=== PATIENT | female | born 1955 | race Caucasian/White ===

== ENCOUNTER 2019-05-11 15:01 | Outpatient (CLI) | payer OTHER, MEDICAID, SELFPAY ==
[2019-05-11] VITALS (8 sets, daily range): BP systolic 114–143; BP diastolic 66–85; PULSE 96–107; RESP 16; TEMP 36.7; O2SAT 98–100
--- NOTE | 2019-05-11 15:05 | DI.RAD.S_ITS ---
PROCEDURE: PAIN L/S TRANSFORAMINAL INJECT INDICATIONS: INTERVERTEBRAL DISC DISPLACEMENT FINDINGS: Fluoroscopic spot filming was performed to verify placement of spinal needles at the L5-S1 level(s), as labeled on the films. Appropriate location(s) of the needle tip(s) was confirmed by injection of iodinated contrast. Dictated by: Edilson Wallis M.D. on 05/11/2019 at 16:54 Approved by: Edilson Wallis M.D. on 05/11/2019 at 16:55
[2019-05-11] MEDS: MIDAZOLAM 5 MG/5 ML VIAL IV (16:10)
[2019-05-11] MEDS: fentaNYL 100 MCG/2 ML INJ 50 MCG IV (16:10)
[2019-05-11] MEDS: DEXAMETHASONE 10 MG/ML VIAL 20 MG INJ (16:15)
[2019-05-11] MEDS: BUPIVACAINE 0.25% (PF) VIAL 2 ML INJ (16:15)
[2019-05-11] MEDS: BETAMETHASONE 30 MG/5 ML MDV 6 MG INJ (16:15)
[2019-05-11] MEDS: IOPAMIDOL 15 ML VIAL 3 ML INJ (16:16)
--- NOTE | 2019-05-11 16:17 | PC.NURSE ---
ASSISTING PT OFF TABLE AND TRANSPORTING TO POST PROC AREA IN STABLE CONDITION.
--- NOTE | 2019-05-11 16:36 | P.PCN_ITS ---
Procedures Date/Time Date of procedure: 05/11/19 Time of procedure: 16:36 General Procedure description: PREOP DIAGNOSIS 1. FORMAINAL STENOSIS WITH LE SYMPTOMS POST OP DIAGNOSIS 1. FORMAINAL STENOSIS WITH LE SYMPTOMS PROCEDURES 1. FLUOROSCOPICALLY GUIDED CONTRAST CONTROLLED TRANSFORAMINAL EPIDURAL STEROID INJECTION - Left L5/S1 PHYSICIAN: Jose Manuel Sanchez DO INDICATIONS: Brittany is referred for treatment of Foraminal Stenosis with Left LE Symptoms FINDINGS Foraminal Nerve Root Compression secondary to disc disease and facet hypertrophy DESCRIPTION OF PROCEDURE: Following review of allergy and review of potential side effects and complications, including, but not necessarily limited to, infection, allergic reaction, local tissue breakdown, stroke, temporary or permanent nerve injury, paralysis, and possible , the patient indicated that the patient understood and agreed to proceed. An informed consent document was signed by the patient, witnessed by a nurse, and placed in the patient's chart. Additionally, other t reatment options including medications, modalities, and physical therapy were reviewed with the patient. After review of previous anaesthesic history and IV conscious sedation the patient was deemed safe to proceed with todays procedure with IV conscious sedation as ASA class II designation. Safety time-out was performed to confirm patient ID, procedure to be performed and site of procedure. IV sedation was accomplished with a combination of 2mg of Versed and 50mcg of Fentanyl was administered by the RN after DO order, titrated to patient comfort during the course of the procedure while the patient remained responsive to all verbal commands In the prone position following sterile prep and drape of the lumbar region, the Left L5/S1 posterior neuroforamen was identified fluoroscopically. The skin was anesthetized via a 25-gauge 1.5-inch needle with 1% lidocaine solution. At this point, a 25-gauge 3.5-inch spinal needle was atraumatically introduced and advanced under fluoroscopic guidance through the posterior Left L5/S1 neuroforamen to approximately the anterior aspect of the canal. Depth was confirmed on lateral view. Following negative aspiration, injection of approximately 1.5 cc of Isovue 200 under live fluoroscopy in the AP view confirmed excellent flow along the nerve root, into the epidural space without vascular or intrathecal uptake observed Radiological data, including multiple fluoroscopic views of the lumbosacral spine, reveal a spinal needle at the Left L5/S1 posterior neuroforamen. Subsequent views show flow of contrast material flowing superiorly and inferiorly along the nerve root confirming epidural flow. Subsequently, a test dose of 1.5 cc of 1% lidocaine solution was administered and patient was observed for two minutes for signs or symptoms of complications, including abdominal pain, shortness of breath, bilateral upper or lower extremity weakness, nausea and vomiting, prior to steroid injection. At this point, a total of 3cc or 20mg of dexamethasone and 6mg of betamethasone was injected without incident. The procedure tolerated the procedure well without signs or symptoms of complications prior to transfer to the recovery area continued monitoring without incident. The patient was then transferred to the recovery area where they were observed for an appropriate time after the injection. The patient reported a VAS score of 9 prior to the procedure and a post-procedure VAS of 2. Total Fluoroscopy Time: 20.9 seconds Total Conscious Sedation Time: 24min POST OP INSTRUCTIONS The patient was provided a Pain Log to continue to record their response to the target-specific procedure prior to follow-up visit with their referring physician. Additionally, specific post-injection care instructions and a contact number to our office were provided if concerns arise regarding possible complications associated with the procedure are suspected. Jose Manuel Sanchez DO Complications: none
== END 2019-05-11 16:50 | disposition home or self-care (01) ==
PROVIDERS: Visit Provider Physical Medicine & Rehabilitation
DX: M48.07 Spinal stenosis, lumbosacral region (principal); M51.17 Intervertebral disc disorders with radiculopathy, lumbosacral region
CPT/HCPCS: 64483; 99152; J0702; J1100; J2250; J3010

== ENCOUNTER → 2020-07-05 15:23 | Outpatient (CLI) | payer OTHER, MEDICAID, SELFPAY ==
--- NOTE | 2020-07-05 15:26 | DI.RAD.S_ITS ---
PROCEDURE: XR CERVICAL SPINE 4V OR 5V INDICATIONS: Cervical radiculopathy TECHNIQUE: 5 views of the cervical spine acquired. COMPARISON: None. FINDINGS: Bones: No definite fracture identified although limited assessment secondary to advanced discogenic changes. Diffuse moderate disc space narrowing throughout the cervical spine. Multilevel degenerative endplate sclerosis and spurring. Diffuse facet arthropathy. Diffuse severe narrowing of the right neural foramen, with relative sparing of C2-C3 and C3-C4. Diffuse mild narrowing of the left neural foramen. Soft tissues: No prevertebral soft tissue swelling. IMPRESSION: Severe multilevel cervical spondylosis and facet arthropathy. Dictated by: Edilson Wallis M.D. on 07/05/2020 at 16:54 Approved by: Edilson Wallis M.D. on 07/05/2020 at 16:56
--- NOTE | 2020-07-05 15:26 | DI.RAD.S_ITS ---
PROCEDURE: XR LUMBAR SPINE MIN 4V INDICATIONS: UPDATE IMAGING TECHNIQUE: 3 views of the lumbar spine were acquired. COMPARISON: [facility] Demetris, CR, XR LUMBAR SPINE WITH OLBIQUES PLUS FLEXION EXTENSION, 12/24/2018, 9:13. FINDINGS: Bones: No fracture. Mild dextroscoliosis. Multilevel degenerative endplate sclerosis and spurring. Diffuse facet arthropathy. Diffuse mild to moderate disc space narrowing. Mild bilateral hip joint degeneration. Periarticular sclerosis at both sacroiliac joints. Soft tissues: Scattered vascular calcifications seen in the aorta. Oblique images: No pars defects. IMPRESSION: Multilevel [id number] lumbar spondylosis and facet arthropathy. No definite interval change Mild dextrocurvature Dictated by: Edilson Wallis M.D. on 07/05/2020 at 16:57 Approved by: Edilson Wallis M.D. on 07/05/2020 at 16:59
== END ==
PROVIDERS: Referring Provider Physical Medicine & Rehabilitation; Visit Provider Physical Medicine & Rehabilitation
DX: M47.817 Spondylosis without myelopathy or radiculopathy, lumbosacral region (principal); M47.816 Spondylosis without myelopathy or radiculopathy, lumbar region; M48.061 Spinal stenosis, lumbar region without neurogenic claudication; M51.27 Other intervertebral disc displacement, lumbosacral region; M47.12 Other spondylosis with myelopathy, cervical region; M47.22 Other spondylosis with radiculopathy, cervical region; M16.0 Bilateral primary osteoarthritis of hip; M41.9 Scoliosis, unspecified
CPT/HCPCS: 72050; 72110; 99215